=== PATIENT | male | born 2000 | race Two or more races ===

== ENCOUNTER 2021-08-25 00:24 | Emergency (ER) | payer MEDICAID, OTHER ==
[~2021-08-25] VITALS: Ht 165.1 cm; Wt 70.8 kg
[2021-08-25 00:24] VITALS: BP 129/71
[2021-08-25] MEDS ORDERED: ACETAMINOPHEN 325 MG TABLET PO ONE ×2 (02:00→03:00)
[2021-08-25] MEDS ORDERED: ACETAMINOPHEN 325 MG TABLET ONE (02:22)
[2021-08-25] MEDS ORDERED: IBUP-1953 PO (02:48)
== END 2021-08-25 03:52 | disposition home or self-care (01) ==
LOC: ER 00:38
DX: M25.511 Pain in right shoulder (principal); Z79.1 Long term (current) use of non-steroidal anti-inflammatories (NSAID)

== ENCOUNTER 2023-06-12 18:09 | Emergency (ER) | payer MEDICAID ==
[~2023-06-12] VITALS: Ht 160 cm; Wt 67.1 kg
[~2023-06-12 18:09] MED LIST: IBUP-1953 PO
[2023-06-12 18:42] VITALS: BP 132/89; TEMP 98.3; O2SAT 98
[2023-06-12] MEDS ORDERED: IBUPROFEN 400 MG TABLET PO ONE (21:00)
[2023-06-12] MEDS ORDERED: ACET-2605 PO (21:11)
[2023-06-12] MEDS ORDERED: IBUP-1955 PO (21:11)
[2023-06-12] MEDS ORDERED: IBUPROFEN 400 MG TABLET ONE (21:17)
== END 2023-06-12 21:22 | disposition home or self-care (01) ==
LOC: ER 18:18
DX: R05.9 Cough, unspecified (principal); R10.30 Lower abdominal pain, unspecified

== ENCOUNTER 2024-08-31 19:36 | Emergency (ER) | payer MEDICAID, OTHER ==
[~2024-08-31] VITALS: Ht 160 cm; Wt 72.6 kg
[~2024-08-31 19:36] MED LIST changes: +ACET-2605 PO; +IBUP-1955 PO
[2024-08-31 23:01] VITALS: BP 125/74; TEMP 98.2; O2SAT 100
== END 2024-08-31 23:00 | disposition home or self-care (01) ==
LOC: ER 19:41
DX: S06.0X1A Concussion with loss of consciousness of 30 minutes or less, initial encounter (principal); Z79.899 Other long term (current) drug therapy; V29.99XA Rider (driver) (passenger) of other motorcycle injured in unspecified traffic accident, initial encounter; Y93.89 Activity, other specified; Y92.415 Exit ramp or entrance ramp of street or highway as the place of occurrence of the external cause; Y99.8 Other external cause status
CPT/HCPCS: 70450-TC